=== PATIENT | male | born 1960 | race Caucasian/White ===

== ENCOUNTER 2019-09-20 23:50 | Emergency (ER) | payer OTHER, SELFPAY ==
[2019-09-20 23:52] VITALS: BP 171/88; PULSE 86; RESP 18; TEMP 36.8; O2SAT 98; BMI 32.8
--- NOTE | 2019-09-20 23:58 | W.ED.ABDPA2 ---
HPI - Abdominal Pain General: Chief Complaint: Abdominal Pain Stated Complaint: ABD PAIN Time Seen by Provider: 09/20/19 23:55 History of Present Illness: HPI narrative: Severo is a nice 59-year-old male who comes in complaining of right flank pain. The pain is somewhat similar but a little different that he has had in the past with kidney stones. He has noticed blood in his urine but denies any dysuria or urinary frequency/urgency. Patient has nausea but no vomiting. He denies any fever. He denies any pain in his testicles. He has had no chest pain or shortness of breath. He is tried [id number] Tylenol Motrin which is helped some but his pain is still present. He denies any other complaints or concerns. Pertinent past history: kidney stones Onset (ago): hour(s) (2) Pain Consistency: constant Location: R flank Severity: moderate Quality: sharp Exacerbating factors: nothing Relieving factors: nothing Associated Symptoms: Reports nausea; Denies chills, dysuria, fever(s), hematuria and syncope Treatments prior to arrival: other (None) Review of Systems General: Reports: other (negative unless marked) Const: Denies: fever, chills, body aches, fatigue, malaise or diaphoresis Eyes: Denies: change in vision or blurry vision ENMT: Denies: throat pain, painful swallowing, hoarseness, ear pain, ear discharge, Change in hearing or nasal discharge Card: Denies: chest pain, palpitations, irregular heart rhythm, syncope, pre-syncope, shortness of breath on exertion or shortness of breath when lying down Resp: Denies: shortness of breath, productive cough, non-productive cough, wheezing, coughing up blood or chest congestion GI: Reports: nausea : Denies: flank pain, difficulty urinating, painful urination, urinary frequency, urinary urgency, decreased urine ouput, urinary incontinence or blood in urine Musc: Denies: neck pain, back pain, extremity pain, extremity swelling, joint pain, joint swelling, joint warmth or joint stiffness Skin/Breast: Denies: rash, skin tenderness or yellow skin Neuro: Denies: headache, numbness in extremities, weakness in extremities, changes in sensation, lack of coordination, difficulty walking, dizziness, vertigo or confusion Endo: Denies: excessive thirst, tired all the time, cold intolerance, excessive sweating, flushing or hot flashes Salty/Lymph: Denies: easy bruising, easy bleeding, petechiae or enlarged lymph nodes All/Imm: Denies: hives, throat swelling, tongue swelling, facial swelling or acute wheezing PFSH ED PFSH: Social History Smoking and tobacco status: never smoked Physical Exam Const: COMMON NORMALS: no apparent distress, oriented x3, no limitations, healthy appearing and well nourished EXAM LIMITATIONS: no altered mental status GENERAL APPEARANCE: cooperative, well kempt and well developed ORIENTATION/CONSCIOUSNESS: Yes awake HENMT: COMMON NORMALS: normocephalic, head/scalp atraumatic, hearing grossly normal bilaterally, external ears normal, EAC's normal, external nose normal and moist oral mucous membranes HEAD & SCALP: normal to inspection, normocephalic and atraumatic FACE & SINUS: normal facial exam and face symmetric NOSE: external nose normal and nares normal EXTERNAL EAR: Yes external ears normal EXTERNAL AUDITORY CANAL: EAC's normal MOUTH: oral and palatal mucosa normal and tongue normal Eye: COMMON NORMALS: PERRL, EOMs intact bilaterally, conjunctivae normal and no scleral icterus GENERAL EYE: normal appearance of both eyes and normal light reflex CONJUNCTIVA: Yes conjunctivae normal SCLERA: sclerae normal CORNEA: Yes corneas normal PUPIL: Yes PERRL DIRECT OPHTHALMOSCOPY: Yes normal light reflex Neck/C-Spine: COMMON NORMALS: full ROM, no lymphadenopathy, supple, no meningeal signs and no JVD GENERAL: Yes normal visual inspection and Yes trachea midline CERVICAL SPINE: Yes cervical ROM normal Chest: COMMONS NORMALS: inspection of chest normal and palpation of chest normal Resp: COMMON NORMALS: normal respiratory effort, no retractions, no use of accessory muscles and clear to auscultation bilaterally EFFORT & INSPECTION: Yes able to speak in complete sentences AUSCULTATION: clear to auscultation bilaterally Cardio: COMMON NORMALS: no JVD, regular rate, regular rhythm, S1 normal heart sound, S2 normal heart sound, no gallops, no clicks, no murmurs and no rub JUGULAR VENOUS DISTENTION: no JVD RATE: regular rate RHYTHM: regular rhythm HEART SOUNDS: S1 normal and S2 normal GI: COMMON NORMALS: soft to palpation, non-tender, no hepatosplenomegaly and no masses INSPECTION: Yes normal to inspection PALPATION: Yes soft and Yes no hepatosplenomegaly : COMMON NORMALS: Yes no CVA tenderness BLADDER/KIDNEY EXAM: Yes no CVA tenderness Back/Pelvis: COMMON NORMALS: no CVA tenderness, thoracic and lumbar spine normal to inspection, no thoracic nor lumbar tenderness and thoraco-lumbar ROM normal Extremity: COMMON NORMALS: normal to inspection, full ROM, normal capillary refill, no joint enlargement, no clubbing, cyanosis or edema and no calf tenderness Neuro: COMMON NORMALS: oriented x3, CN's II-XII intact bilaterally, moves all extremities, no focal motor deficits and no sensory deficits noted MENINGEAL SIGNS: Yes no meningeal signs Psych: COMMON NORMALS: mental status grossly normal, thought process normal, cooperative, affect normal, speech normal and activity/motor behavior normal APPEARANCE: Yes well kempt SPEECH: Yes normal speech THOUGHT PROCESS: normal thought process Skin: COMMON NORMALS: no rashes or lesions noted, skin turgor normal, no jaundice, no petechiae and no mottling GENERAL SKIN EXAM: no rashes or lesions noted and turgor normal Course Vital Signs: Vital signs: Vital Signs Temperature 98.3 F 09/20/19 23:52 Pulse Rate 86 09/20/19 23:52 Respiratory Rate 18 09/21/19 00:10 Blood Pressure 171/88 09/20/19 23:52 Pulse Oximetry 98 09/20/19 23:52 MDM - Abdominal Pain MDM Narrative: Medical decision making narrative: Patient states overall he feels much better at this time. CT scan does reveal a kidney stone at the distal right ureter above the UVJ. Patient states that he does not want anything stronger for pain at home. I will give a dose of Toradol and Zofran here before he leaves. He states he can usually tolerate this with Tylenol and Motrin. There is no sign of infection and the patient does not have intractable vomiting. He agrees to return should his symptoms change or worsen. Lab Data: Attestation: I reviewed the patient's lab results. Labs: Lab Results 09/21/19 09/21/19 09/21/19 Range/Units 00:05 00:05 01:10 WBC 9.1 (4.0-10.0) 10^3/ uL RBC 4.88 (4.1-5.3) 10^6/u L Hgb 14.0 (11.7-16.6) g/dL Hct 42.8 (42.0-52.0) % MCV 87.7 (80-94) fL MCH 28.7 (28.0-34.0) pg MCHC 32.7 (30.0-36.0) g/dL RDW 13.3 (12.1-15.1) % Plt Count 347 (130-400) 10^3/c mm MPV 9.9 (7.4-10.4) fL Neut % (Auto) 52.3 % Lymph % (Auto) 38.7 % Foard % (Auto) 7.7 % Eos % (Auto) 0.7 % Baso % (Auto) 0.3 % Neut # (Auto) 4.7 (1.8-7.7) 10^3/u L Lymph # (Auto) 3.5 (0.8-4.8) 10^3/u L Foard # (Auto) 0.7 (0.2-0.9) 10^3/u L Eos # (Auto) 0.1 (0.0-0.8) 10^3/u L Baso # (Auto) 0.0 (0.0-0.1) 10^3/u L Nucleated RBC % (a uto) 0 % Nucleated RBCs # 0.0 /100WBC Sodium 140 (136-145) mmol/L Potassium 3.9 (3.5-5.1) mmol/L Chloride 102 (98-107) mmol/L Carbon Dioxide 24 (22-29) mmol/L Anion Gap 17.9 (5-19) BUN 16 (8-23) mg/dL Creatinine 1.3 H (0.7-1.2) mg/dL GFR Calculation 56.3 L (90-130) mL/min Glucose 140 H (65-115) mg/dL Calculated Osmolal ity 289 (285-295) mOsm/k g Calcium 10.4 (8.5-10.5) mg/dL Total Bilirubin 0.3 (0.15-1.2) mg/dL AST 24 (0-40) U/L ALT 41 (0-41) U/L Alkaline Phosphata se 111 (40-130) IU/L Total Protein 7.6 (6.6-8.7) g/dL Albumin 4.8 (3.5-5.2) g/dL Globulin 2.8 (1.3-4.6) g/dL Lipase 32 (13-60) U/L Urine Color Yellow (Yellow) Urine Appearance Clear (CLEAR) Urine pH 5 (5-7) Ur Specific Gravit y 1.020 (1.005-1.030) Urine Protein Neg (Negative) Urine Glucose (UA) Norm (Normal) Urine Ketones Negative (Negative) Urine Blood 2+ H (Negative) Urine Nitrate Negative (Negative) Urine Bilirubin Neg (NEGATIVE) Urine Urobilinogen Norm (Negative) mg/dL Ur Leukocyte Carola ase Negative (Negative) Urine RBC 0-4 H (0-2) /hpf Urine WBC Rare (0-5) /hpf Ur Squamous Epith Cells Rare (0-5) Urine Bacteria Trace (NONE) Imaging Data ^: CT Abd/Pel: Radiologist's impression: [place] [address] CT Scan Report Signed Patient: SEVERO URBINA Unit #: [id number] : 1960 Age/Sex: 59 / M ADM Date: 09/20/19 Loc: ER Room/Bed: Attending Dr: Ordering Provider/Ordering MD: Petra Bowling DO Date of Service: 09/20/19 Procedure(s): CT kidney stone 44112 Accession Number(s): [id number] Report Number: [id number] PROCEDURE INFORMATION: Exam: CT Abdomen And Pelvis Without Contrast Exam date and time: 09/20/2019 11:58 PM Age: 59 years old Clinical indication: Abdominal pain; Flank; Right; Prior surgery; Surgery type: Hernia repair; Additional info: Flank/abdominal pain TECHNIQUE: Imaging protocol: Computed tomography of the abdomen and pelvis without contrast. Radiation optimization: All CT scans at this facility use at least one of these dose optimization techniques: automated exposure control; mA and/or kV adjustment per patient size (includes targeted exams where dose is matched to clinical indication); or iterative reconstruction. COMPARISON: No relevant prior studies available. RADIATION DOSE METRICS: Total DLP: 2107.16 mGy-cm FINDINGS: Limitations: The absence of intravenous contrast lessens the sensitivity of this study for solid organ abnormalities. Liver: There is moderate enlargement of the liver. The liver measures 22 cm in height. There is a diffuse decrease in hepatic parenchymal density, consistent with mild fatty infiltration. There is no focal abnormality within the liver. Gallbladder and bile ducts: The gallbladder is normal. Pancreas: The pancreas is normal. Spleen: The spleen is normal. Adrenals: The adrenal glands are normal. Kidneys and ureters: There is maximum size 4.6 mm sized stone in the distal right ureter just above the right ureterovesical junction. This measures approximately 1300 Hounsfield units in density and may be visible on the human geography instructor radiograph. There is mild right hydroureter. There are multiple bilateral renal collecting system calcifications. There is no evidence of hydronephrosis. There is no stone in the left ureter. Stomach and bowel: There is no evidence of colitis/diverticulitis. Appendix: A normal appendix is identified. Intraperitoneal space: Unremarkable. No free air. No significant fluid collection. Vasculature: The aorta demonstrates mild atherosclerotic calcification. Lymph nodes: Unremarkable. No enlarged lymph nodes. Bladder: Unremarkable as visualized. Reproductive: Unremarkable as visualized. Bones/joints: Unremarkable. No acute fracture. Soft tissues: Unremarkable. CT/CT kidney stone [id number] IMPRESSION: 1. Bilateral nephrolithiasis 2. Small stone in the distal right ureter at the right ureterovesical junction. 3. Hepatomegaly and mild fatty liver Radiation Dose CTDIVOL = (mGy): DLP = 2107.16 (mGy-cm) Dictated By: Eric Blue Signed By: Eric Blue Signed Date/Time: 09/21/1944 DD/ Discharge Plan Discharge Patient Disposition: Home, Self-Care Clinical Impression: Calculus, ureteral Condition: Stable Prescriptions: New Zofran 4 mg tablet 4 mg PO Q6H PRN (Reason: nausea and vomiting) Qty: 20 RF: 0 Cipro 500 mg tablet 500 mg PO BID Qty: 20 RF: 0 No Action amlodipine 10 mg Tablet 10 mg PO DAILY RF: 0 losartan 100 mg Tablet 100 mg PO DAILY RF: 0 Discharge Orders: Discharge Order (Routine); Ordered 09/21/19 Ordered By: Petra Bowling Referrals: Altaf Trivedi MD [Physician] - 1-3 days Discharge Diet: Advance as tolerated Discharge Activity: Resume usual activity Patient Instructions: Kidney Stones (ED), Renal Colic (ED), Flank Pain (ED) Activity Restrictions/Additional Instructions: Please return to the ER immediately for any of the signs or symptoms listed on your discharge instruction sheets, worsening/changing of your symptoms, you are not getting better as quickly as expected, or for ANY other cause or concerns. Be certain to strain your urine. Be certain to follow-up with Dr. Trivedi for recheck. Return to the ER for worsening of your symptoms, fever, intractable vomiting, or for any other cause for concern. Coding Level of Care Code ED Diet Therapist for Kenneth Fwd Exam Comprehensive
[2019-09-21] VITALS (26 sets, daily range): BP systolic 171; BP diastolic 88; RESP 18; O2SAT 95–97
[2019-09-21] MEDS: sodium chloride 0.9% 1,000 ML 999 ML IV (00:05)
[2019-09-21] MEDS: ondansetron 2 mg/ML SDV 2 mL 4 MG IVP (00:06)
[2019-09-21] MEDS: HYDROmorphone 1 mg/mL INJ 1 mL IVP (00:10)
[2019-09-21 00:13] LABS: Basophils % 0.3 %; Eosinophils # 0.1 10^3/uL (0.0-0.8); Eosinophils % 0.7 %; Hematocrit 42.8 % (42.0-52.0); Lymphocytes # 3.5 10^3/uL (0.8-4.8); Lymphocytes % 38.7 %; Mean Corpuscular HGB Conc 32.7 g/dL (30.0-36.0); Mean Corpuscular Hemoglobin 28.7 pg (28.0-34.0); Mean Corpuscular Volume 87.7 fL (80-94); Mean Platelet Volume 9.9 fL (7.4-10.4); Monocytes # 0.7 10^3/uL (0.2-0.9); Monocytes % 7.7 %; Neutrophils # 4.7 10^3/uL (1.8-7.7); Neutrophils % 52.3 %; Nucleated Red Blood Cells % 0 %; Platelet Count 347 10^3/cmm (130-400); Red Blood Count 4.88 10^6/uL (4.1-5.3); Red Cell Distribution Width 13.3 % (12.1-15.1); White Blood Count 9.1 10^3/uL (4.0-10.0)
[2019-09-21 00:34] LABS: Alanine Aminotransferase 41 U/L (0-41); Albumin Level 4.8 g/dL (3.5-5.2); Alkaline Phosphatase 111 IU/L (40-130); Anion Gap 17.9 (5-19); Aspartate Amino Transferase 24 U/L (0-40); Blood Urea Nitrogen 16 mg/dL (8-23); Calcium 10.4 mg/dL (8.5-10.5); Carbon Dioxide 24 mmol/L (22-29); Chloride 102 mmol/L (98-107); Globulin 2.8 g/dL (1.3-4.6); Glomerular Filtration Rate 56.3 mL/min (90-130); Glucose 140 mg/dL (65-115); Lipase 32 U/L (13-60); Osmolality Calculated 289 mOsm/kg (285-295); Potassium 3.9 mmol/L (3.5-5.1); Sodium 140 mmol/L (136-145); Total Bilirubin 0.3 mg/dL (0.15-1.2); Total Protein 7.6 g/dL (6.6-8.7)
[2019-09-21 01:53] LABS: Bacteria Urine TRACE; Bilirubin Urine Neg (NEGATIVE); Blood Urine 2+ (Negative); Glucose Urine UA Norm (Normal); Ketones Urine Negative (Negative); Leukocyte Esterase Urine Negative (Negative); Nitrate Urine Negative (Negative); Protein Urine Neg (Negative); RBC Urine 0-4 /hpf (0-2); Squamous Epithelial Cell Urine RARE (0-5); Urine Appearance Clear (CLEAR); Urine Color Yellow (Yellow); Urobilinogen Urine Norm (Negative); WBC Urine RARE /hpf (0-5); pH Urine 5 (5-7)
--- NOTE | 2019-09-21 14:20 | DCPLANNER ---
accreditation manager had message to schedule a follow up appointment for patient with Dr. Trivedi. accreditation manager called the office of Dr. Trivedi, spoke with Sobia, gave clinic patients information. accreditation manager was told that patients information would be printed and given to Caro for review. Clinic will call patient with appointment information. accreditation manager will call for appointment information.
--- NOTE | 2019-09-23 12:11 | DCPLANNER ---
Sobia from Dr. Black office called case finishing machine adjuster and informed case finishing machine adjuster that clinic does not accept patients insurance, and clinic has called patient and informed patient of this. Patient stated that he would follow up with primary care.
== END 2019-09-21 02:44 | disposition home or self-care (01) ==
PROVIDERS: Emergency Provider Emergency Medicine
DX: N20.1 Calculus of ureter (principal)
CPT/HCPCS: 12345; 74176; 80053; 81001; 83690; 85025; 96361; 96374; 96375; 96376; 99283; 99284; J1170; J2405; J7030

== ENCOUNTER 2020-03-24 11:06 | Emergency (ER) | payer OTHER, SELFPAY ==
[2020-03-24 11:22] VITALS: BP 158/88; PULSE 83; RESP 14; TEMP 36.8; O2SAT 97; BMI 32.8
--- NOTE | 2020-03-24 12:01 | XRR_ITS ---
PROCEDURE INFORMATION: Exam: XR Chest, 1 View Exam date and time: 03/24/2020 12:28 PM Age: 59 years old Clinical indication: Dyspnea; Additional info: Dizziness TECHNIQUE: Imaging protocol: XR of the chest Views: 1 view. COMPARISON: No relevant prior studies available. FINDINGS: Lungs: Unremarkable. No consolidation. Pleural space: Unremarkable. No pleural effusion. No pneumothorax. Heart/Mediastinum: Unremarkable. No cardiomegaly. Bones/joints: Mild dextroscoliosis. XR/XR chest 1V portable [id number] IMPRESSION: No acute findings.
--- NOTE | 2020-03-24 12:01 | CTR_ITS ---
PROCEDURE INFORMATION: Exam: CT Head Without Contrast Exam date and time: 03/24/2020 12:28 PM Age: 59 years old Clinical indication: Dizziness TECHNIQUE: Imaging protocol: Computed tomography of the head without contrast. Radiation optimization: All CT scans at this facility use at least one of these dose optimization techniques: automated exposure control; mA and/or kV adjustment per patient size (includes targeted exams where dose is matched to clinical indication); or iterative reconstruction. COMPARISON: No relevant prior studies available. RADIATION DOSE METRICS: Total DLP (mGy-cm): 862.41 FINDINGS: Brain: Mild cerebral atrophy and ischemic leukoencephalopathy. Cerebral ventricles: No ventriculomegaly. Bones/joints: Unremarkable. No acute fracture. Paranasal sinuses: Visualized sinuses are unremarkable. No fluid levels. Mastoid air cells: Visualized mastoid air cells are well aerated. Vasculature: Moderate calcified intracranial atherosclerotic vessel disease. Soft tissues: Unremarkable. CT/CT head wo con* [id number] IMPRESSION: No acute intracranial findings. Radiation Dose CTDIVOL = (mGy): DLP = 862.41 (mGy-cm)
--- NOTE | 2020-03-24 12:05 | ECG_ITS ---
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
--- NOTE | 2020-03-24 12:05 | W.ED.DIZZY ---
HPI - Dizziness General: Chief Complaint: Dizziness Stated Complaint: Dizzy,trouble walking,high bp,sob,chest pain,heada Time Seen by Provider: 03/24/20 11:48 Source: patient Mode of arrival: ambulatory Limitations: no limitations History of Present Illness: HPI Narrative: Patient is a 59-year-old male with a history of hypertension who presents to the emergency department with dizziness and vertigo. He was having breakfast when he had a sudden onset of severe dizziness and presyncope and thought he was going to have a syncopal episode. Worse on turning his head. He had a little bit of shortness of breath but no chest pain at the time. Still no chest pain now. Symptoms a little better but still present. 4 days ago his boss tested positive for COVID-19, and both have been sick all week. The patient got a test 2 days ago but tested negative. MD elicited complaint: dizziness and near syncope Timing: sudden onset Severity: severe Description: room spinning History of similar symptoms: No Exacerbating factors: movement/ambulation Associated symptoms: Denies abnormal vaginal bleeding, change in hearing, chest pain, chills, cough, diaphoresis, ear discharge, ear pressure, fevers/chills, headache(s), malaise, nausea, nasal congestion, palpitations, rash, short of breath, syncope, tinnitus, vomiting or weakness Review of Systems General: Reports: 10 or more systems reviewed and unremarkable except in HPI and below Const: Denies: chills, malaise or diaphoresis Eyes: Denies: change in vision or blurry vision ENMT: Denies: ear discharge, change in hearing, tinnitus or nasal congestion Card: Denies: chest pain, palpitations or syncope Resp: Denies: dyspnea, productive cough or non-productive cough GI: Denies: nausea or vomiting : Denies: flank pain, dysuria, urinary frequency, urinary urgency or urinary hesitancy Musc: Denies: neck pain, back pain or extremity swelling Skin/Breast: Denies: rash, pruritus or erythema Neuro: Denies: headache(s) Endo: Denies: polyuria, polydipsia or tired all the time PFSH ED PFSH: Social History Smoking and tobacco status: never smoked Physical Exam Const: COMMON NORMALS: no acute distress, average body habitus, patient oriented x3, no limitations, healthy appearing, alert and well nourished HENMT: COMMON NORMALS: normocephalic, atraumatic and moist oral mucous membranes HEAD & SCALP: normocephalic and atraumatic Eye: COMMON NORMALS: Equal, round and reactive pupils present, EOMs intact bilaterally, conjunctivae normal and no scleral icterus CONJUNCTIVA: Yes conjunctivae normal PUPIL: Yes Equal, round and reactive pupils present Neck/C-Spine: COMMON NORMALS: full ROM, supple, no meningeal signs, no JVD and No carotid bruits Chest: COMMONS NORMALS: normal inspection of the chest and normal palpation of entire chest wall Resp: COMMON NORMALS: normal respiratory effort, No retractions, No use of accessory muscles, clear to auscultation bilaterally and percussion normal AUSCULTATION: clear to auscultation bilaterally PERCUSSION: percussion normal Cardio: COMMON NORMALS: no JVD, regular rate, regular rhythm, S1 normal heart sound present, S2 normal heart sound present, No gallops present (Cardio), No clicks present (Cardio), No murmurs present (Cardio), No rub (Cardio) and Peripheral pulses 2+ throughout RATE: regular rate RHYTHM: regular rhythm HEART SOUNDS: S1 normal heart sound present and S2 normal heart sound present PERIPHERAL PULSES: Peripheral pulses 2+ throughout GI: COMMON NORMALS: Normal to inspection, nondistended, normoactive bowel sounds present, Soft to palpation, non-tender, No hepatosplenomegaly present, no masses and no bruits PALPATION: Yes Soft to palpation and Yes No hepatosplenomegaly present Extremity: COMMON NORMALS: normal to inspection, full ROM, capillary refill normal, no calf tenderness and no pedal edema Neuro: COMMON NORMALS: patient oriented x3 SENSORIUM/ORIENTATION: Yes alert MENINGEAL SIGNS: Yes no meningeal signs Skin: COMMON NORMALS: no rashes or lesions noted, no wounds, turgor normal, no jaundice, no petechiae and no mottling GENERAL SKIN EXAM: no rashes or lesions noted and turgor normal Course Reevaluation(s): Reevaluation #1: Dizziness much improved after meclizine. Time: 13:36 Reevaluation #2: Discussed his labs and imaging findings with him. Negative for acute findings. He continues to feel much improved and no longer has symptoms. He will be discharged home with a prescription for meclizine. He voiced understanding and all questions answered. Time: 15:28 Vital Signs: Vital signs: Vital Signs Temperature 98.2 F 03/24/20 11:22 Pulse Rate 75 03/24/20 15:57 Respiratory Rate 22 H 03/24/20 15:57 Blood Pressure 123/81 03/24/20 15:57 Pulse Oximetry 96 03/24/20 15:57 MDM - Dizziness MDM Narrative: Medical decision making narrative: 59-year-old male with sudden onset of vertigo today. Vertigo was relieved with meclizine, and evaluation in the emergency department was unremarkable for acute findings. Head CT negative, other labs and imaging also negative for acute findings. He is discharged home with a prescription for meclizine and a printout of the Ansley maneuver exercises to perform at home Medical Records: Attestation: I reviewed the patient's medical records. Lab Data: Attestation: I reviewed the patient's lab results. Labs: Lab Results 03/24/20 03/24/20 03/24/20 Range/Units 12:19 12:19 12:24 WBC (4.0-10.0) 10^3/ uL RBC (4.1-5.3) 10^6/u L Hgb (11.7-16.6) g/dL Hct (42.0-52.0) % MCV (80-94) fL MCH (28.0-34.0) pg MCHC (30.0-36.0) g/dL RDW (12.1-15.1) % Plt Count (130-400) 10^3/c mm MPV (7.4-10.4) fL Neut % (Auto) % Lymph % (Auto) % [place] % (Auto) % Eos % (Auto) % Baso % (Auto) % Neut # (Auto) (1.8-7.7) 10^3/u L Lymph # (Auto) (0.8-4.8) 10^3/u L [place] # (Auto) (0.2-0.9) 10^3/u L Eos # (Auto) (0.0-0.8) 10^3/u L Baso # (Auto) (0.0-0.1) 10^3/u L Nucleated RBC % (a uto) % Nucleated RBCs # /100WBC D-Dimer 0.29 (0-0.59) ug/mIFE U Sodium (136-145) mmol/L Potassium (3.5-5.1) mmol/L Chloride (98-107) mmol/L Carbon Dioxide (22-29) mmol/L Anion Gap (5-19) BUN (8-23) mg/dL Creatinine (0.7-1.2) mg/dL GFR Calculation (90-130) mL/min Glucose (65-115) mg/dL Calculated Osmolal ity (285-295) mOsm/k g Lactic Acid (0.5-2.2) mmol/L Calcium (8.5-10.5) mg/dL Total Bilirubin (0.15-1.2) mg/dL AST (0-40) U/L ALT (0-41) U/L Alkaline Phosphata se (40-130) IU/L Troponin T Baselin e (0-15) ng/L Troponin T 120 Min kleber (0-15) ng/L Delta Troponin T (0-10) ABS# C-Reactive Protein (0.0-4.9) mg/L Total Protein (6.6-8.7) g/dL Albumin (3.5-5.2) g/dL Globulin (1.3-4.6) g/dL Procalcitonin (0-0.5) ng/mL Influenza Type A A g Negative (Negative) Influenza Type B A g Negative (Negative) SARS-CoV-2 Ag (Rap id) Negative (Negative) 03/24/20 03/24/20 03/24/20 Range/Units 12:24 12:24 12:24 WBC 6.8 (4.0-10.0) 10^3/ uL RBC 5.03 (4.1-5.3) 10^6/u L Hgb 14.2 (11.7-16.6) g/dL Hct 43.4 (42.0-52.0) % MCV 86.3 (80-94) fL MCH 28.2 (28.0-34.0) pg MCHC 32.7 (30.0-36.0) g/dL RDW 14.4 (12.1-15.1) % Plt Count 289 (130-400) 10^3/c mm MPV 9.6 (7.4-10.4) fL Neut % (Auto) 53.1 % Lymph % (Auto) 38.9 % [place] % (Auto) 6.6 % Eos % (Auto) 0.7 % Baso % (Auto) 0.3 % Neut # (Auto) 3.62 (1.8-7.7) 10^3/u L Lymph # (Auto) 2.7 (0.8-4.8) 10^3/u L [place] # (Auto) 0.5 (0.2-0.9) 10^3/u L Eos # (Auto) 0.1 (0.0-0.8) 10^3/u L Baso # (Auto) 0.0 (0.0-0.1) 10^3/u L Nucleated RBC % (a uto) 0 % Nucleated RBCs # 0.0 /100WBC D-Dimer (0-0.59) ug/mIFE U Sodium 139 (136-145) mmol/L Potassium 4.0 (3.5-5.1) mmol/L Chloride 103 (98-107) mmol/L Carbon Dioxide 21 L (22-29) mmol/L Anion Gap 19.0 (5-19) BUN 19 (8-23) mg/dL Creatinine 0.8 (0.7-1.2) mg/dL GFR Calculation 98.6 (90-130) mL/min Glucose 136 H (65-115) mg/dL Calculated Osmolal ity 292 (285-295) mOsm/k g Lactic Acid 1.4 (0.5-2.2) mmol/L Calcium 9.4 (8.5-10.5) mg/dL Total Bilirubin 0.3 (0.15-1.2) mg/dL AST 23 (0-40) U/L ALT 39 (0-41) U/L Alkaline Phosphata se 112 (40-130) IU/L Troponin T Baselin e (0-15) ng/L Troponin T 120 Min kleber (0-15) ng/L Delta Troponin T (0-10) ABS# C-Reactive Protein 7.0 H (0.0-4.9) mg/L Total Protein 7.3 (6.6-8.7) g/dL Albumin 4.5 (3.5-5.2) g/dL Globulin 2.8 (1.3-4.6) g/dL Procalcitonin 0.06 (0-0.5) ng/mL Influenza Type A A g (Negative) Influenza Type B A g (Negative) SARS-CoV-2 Ag (Rap id) (Negative) 03/24/20 03/24/20 Range/Units 12:24 14:45 WBC (4.0-10.0) 10^3/ uL RBC (4.1-5.3) 10^6/u L Hgb (11.7-16.6) g/dL Hct (42.0-52.0) % MCV (80-94) fL MCH (28.0-34.0) pg MCHC (30.0-36.0) g/dL RDW (12.1-15.1) % Plt Count (130-400) 10^3/c mm MPV (7.4-10.4) fL Neut % (Auto) % Lymph % (Auto) % [place] % (Auto) % Eos % (Auto) % Baso % (Auto) % Neut # (Auto) (1.8-7.7) 10^3/u L Lymph # (Auto) (0.8-4.8) 10^3/u L [place] # (Auto) (0.2-0.9) 10^3/u L Eos # (Auto) (0.0-0.8) 10^3/u L Baso # (Auto) (0.0-0.1) 10^3/u L Nucleated RBC % (a uto) % Nucleated RBCs # /100WBC D-Dimer (0-0.59) ug/mIFE U Sodium (136-145) mmol/L Potassium (3.5-5.1) mmol/L Chloride (98-107) mmol/L Carbon Dioxide (22-29) mmol/L Anion Gap (5-19) BUN (8-23) mg/dL Creatinine (0.7-1.2) mg/dL GFR Calculation (90-130) mL/min Glucose (65-115) mg/dL Calculated Osmolal ity (285-295) mOsm/k g Lactic Acid (0.5-2.2) mmol/L Calcium (8.5-10.5) mg/dL Total Bilirubin (0.15-1.2) mg/dL AST (0-40) U/L ALT (0-41) U/L Alkaline Phosphata se (40-130) IU/L Troponin T Baselin e 6 (0-15) ng/L Troponin T 120 Min kleber 6.00 (0-15) ng/L Delta Troponin T 0 (0-10) ABS# C-Reactive Protein (0.0-4.9) mg/L Total Protein (6.6-8.7) g/dL Albumin (3.5-5.2) g/dL Globulin (1.3-4.6) g/dL Procalcitonin (0-0.5) ng/mL Influenza Type A A g (Negative) Influenza Type B A g (Negative) SARS-CoV-2 Ag (Rap id) (Negative) Imaging Data^: CXR: Attestation: I personally reviewed and interpreted this imaging study as follows: Radiologist's impression: [place] [address] XRay Report Signed Patient: Ruben Zabala #: [id number] : 1960Acct#:[id number] Age/Sex: 59 / MADM Date: 03/24/20 Loc: [facility] [place]/Bed: Attending Dr: Ordering Provider/Ordering MD: Shelton Blanco MD, [facility] Date of Service: 03/24/20 Procedure(s): XR chest 1V portable [id number] Accession Number(s): [id number] Report Number: [id number] PROCEDURE INFORMATION: Exam: XR Chest, 1 View Exam date and time: 03/24/2020 12:28 PM Age: 59 years old Clinical indication: Dyspnea; Additional info: Dizziness TECHNIQUE: Imaging protocol: XR of the chest Views: 1 view. COMPARISON: No relevant prior studies available. FINDINGS: Lungs: Unremarkable. No consolidation. Pleural space: Unremarkable. No pleural effusion. No pneumothorax. Heart/Mediastinum: Unremarkable. No cardiomegaly. Bones/joints: Mild dextroscoliosis. XR/XR chest 1V portable [id number] IMPRESSION: No acute findings. Dictated By:Kuldip Albright MD Signed By:Kuldip Albright MDSigned Date/Time:03/24/20 1306 DD/ 04 CT Head: Attestation: I personally reviewed and interpreted this imaging study as follows: Radiologist's impression: [address] [address] [address] Scan Report Signed Patient: Ruben Zabala #: [id number] : 1960Acct#:[id number] Age/Sex: 59 / MADM Date: 03/24/20 Loc: [facility]/Bed: Attending Dr: Ordering Provider/Ordering MD: Shelton Blanco MD, [facility] Date of Service: 03/24/20 Procedure(s): CT head wo con* [id number] Accession Number(s): [id number] Report Number: [id number] PROCEDURE INFORMATION: Exam: CT Head Without Contrast Exam date and time: 03/24/2020 12:28 PM Age: 59 years old Clinical indication: Dizziness TECHNIQUE: Imaging protocol: Computed tomography of the head without contrast. Radiation optimization: All CT scans at this facility use at least one of these dose optimization techniques: automated exposure control; mA and/or kV adjustment per patient size (includes targeted exams where dose is matched to clinical indication); or iterative reconstruction. COMPARISON: No relevant prior studies available. RADIATION DOSE METRICS: Total DLP (mGy-cm): 862.41 FINDINGS: Brain: Mild cerebral atrophy and ischemic leukoencephalopathy. Cerebral ventricles: No ventriculomegaly. Bones/joints: Unremarkable. No acute fracture. Paranasal sinuses: Visualized sinuses are unremarkable. No fluid levels. Mastoid air cells: Visualized mastoid air cells are well aerated. Vasculature: Moderate calcified intracranial atherosclerotic vessel disease. Soft tissues: Unremarkable. CT/CT head wo con* [id number] IMPRESSION: No acute intracranial findings. Radiation Dose CTDIVOL = (mGy): DLP = 862.41 (mGy-cm) Dictated By:Kuldip Albright MD Signed By:Kuldip Albright MDSigned Date/Time:03/24/20 1304 DD/ 1304 EKG Data^: EKG 1: Attestation: I personally reviewed and interpreted this EKG as follows: EKG interpretation date: 03/24/20 EKG interpretation time: 11:33 Prior EKG tracings: not available for review Interpretation: Normal sinus rhythm. Heart rate [address] changes. Normal axis. EKG 2: Attestation: I personally reviewed and interpreted this EKG as follows: EKG interpretation date: 03/24/20 EKG interpretation time: 15:28 Prior EKG tracings: available for review Interpretation: Normal sinus rhythm. Heart rate [address] changes. Normal axis. Discharge Plan Discharge Patient Disposition: Home Clinical Impression: Benign paroxysmal positional vertigo Qualifiers: Laterality: unspecified laterality Qualified Code(s): H81.10 - Benign paroxysmal vertigo, unspecified ear Condition: Stable Prescriptions: New meclizine 25 mg tablet 25 mg PO TID PRN (Reason: dizziness) Qty: 30 RF: 0 Continued amlodipine 10 mg Tablet 10 mg PO DAILY RF: 0 losartan 100 mg Tablet 100 mg PO DAILY RF: 0 ondansetron HCl [Zofran] 4 mg tablet 4 mg PO Q6H PRN (Reason: nausea and vomiting) Qty: 20 RF: 0 B Complex Stress Tab 1 tab PO PRN RF: 0 rabeprazole 20 mg tablet,delayed release (DR/EC) 20 mg PO DAILY RF: 0 naproxen 375 mg Tablet 375 - 750 mg PO PRN RF: 0 aspirin 325 mg Tablet 975 mg PO TID RF: 0 allopurinol 100 mg tablet 100 mg PO DAILY RF: 0 Tylenol Extra Strength 500 mg Tablet 1,000 mg PO PRN RF: 0 ProAir HFA 90 mcg/actuation Hfa Aerosol Inhaler 2 puff INHALATION Q4H PRN (Reason: Shortness Of Breath) RF: 0 Excedrin Migraine 250-250-65 mg Tablet 3 tab PO PRN RF: 0 Tricor 48 mg tablet 48 mg PO DAILY RF: 0 Discharge Orders: Discharge Order (Routine); Ordered 03/24/20 Ordered By: Shelton Blanco Discharge Diet: Usual diet Discharge Activity: Increase activity as tolerated Patient Instructions: Benign Paroxysmal Positional Vertigo (ED) Activity Restrictions/Additional Instructions: Return for any new or worsening symptoms. Follow up with your primary care provider within 3 days. Take the medications as prescribed. Perform the exercises given to you to help with your symptoms. Discharge Date/Time: 03/24/20 16:02 Coding Level of Care Code ED Exercise Scientist for Kenneth Fwd Exam Comprehensive
[2020-03-24] MEDS: meclizine 25 mg tablet PO (12:21)
[2020-03-24 12:37] LABS: Basophils % 0.3 %; Eosinophils # 0.1 10^3/uL (0.0-0.8); Eosinophils % 0.7 %; Hematocrit 43.4 % (42.0-52.0); Hemoglobin 14.2 g/dL (11.7-16.6); Lymphocytes # 2.7 10^3/uL (0.8-4.8); Lymphocytes % 38.9 %; Mean Corpuscular HGB Conc 32.7 g/dL (30.0-36.0); Mean Corpuscular Hemoglobin 28.2 pg (28.0-34.0); Mean Corpuscular Volume 86.3 fL (80-94); Mean Platelet Volume 9.6 fL (7.4-10.4); Monocytes # 0.5 10^3/uL (0.2-0.9); Monocytes % 6.6 %; Neutrophils # 3.62 10^3/uL (1.8-7.7); Neutrophils % 53.1 %; Nucleated Red Blood Cells % 0 %; Platelet Count 289 10^3/cmm (130-400); Red Blood Count 5.03 10^6/uL (4.1-5.3); Red Cell Distribution Width 14.4 % (12.1-15.1); White Blood Count 6.8 10^3/uL (4.0-10.0)
[2020-03-24 12:55] LABS: D Dimer 0.29 ug/mIFEU (0-0.59)
[2020-03-24 12:58] LABS: Lactic Sepsis W/Reflex 1.4 mmol/L (0.5-2.2)
[2020-03-24 12:58] LABS: Influenza A by IFA Negative (Negative); Influenza B by IFA Negative (Negative); SARS Covid-2 Antigen Negative (Negative)
[2020-03-24 12:59] LABS: Troponin(5th) Baseline 6 ng/L (0-15)
[2020-03-24 13:05] LABS: Procalcitonin 0.06 ng/mL (0-0.5)
[2020-03-24 13:16] LABS: Alanine Aminotransferase 39 U/L (0-41); Albumin Level 4.5 g/dL (3.5-5.2); Alkaline Phosphatase 112 IU/L (40-130); Aspartate Amino Transferase 23 U/L (0-40); Blood Urea Nitrogen 19 mg/dL (8-23); Calcium 9.4 mg/dL (8.5-10.5); Carbon Dioxide 21 mmol/L (22-29); Chloride 103 mmol/L (98-107); Globulin 2.8 g/dL (1.3-4.6); Glomerular Filtration Rate 98.6 mL/min (90-130); Glucose 136 mg/dL (65-115); Osmolality Calculated 292 mOsm/kg (285-295); Sodium 139 mmol/L (136-145); Total Bilirubin 0.3 mg/dL (0.15-1.2); Total Protein 7.3 g/dL (6.6-8.7)
--- NOTE | 2020-03-24 14:05 | ECG_ITS ---
[facility] Test Date: 2020-03-24 Pat Name: Severo Zabala Department: Room: Gender: Male Director Of Pulmonary Unit: : 1960 Requested By: Shelton Blanco I Order Number: [id number] Reading MD: CARYL SCHERER Measurements Intervals [place] Rate: 72 P: 29 NM: 148 QRS: 9 QRSD: 88 T: 19 QT: 378 QTc: 414 Interpretive Statements SINUS RHYTHM Compared to ECG 03/24/2020 11:33:49 No significant changes Electronically Signed On 03-24-2020 18:31:44 CDT by CARYL SCHERER [id number]
[2020-03-24 15:07] LABS: Troponin 5 2HR Delta 0 ABS# (0-10)
[2020-03-24 15:57] VITALS: BP 123/81; PULSE 75; RESP 22; O2SAT 96
[2020-03-25 16:43] LABS: Quest SARS-CoV-2 RNA NOT DETECTED (NOT DETECTED)
--- NOTE | 2020-03-26 08:39 | PC.NURSE ---
Pt called and notified of negative COVID result.
== END 2020-03-24 16:02 | disposition home or self-care (01) ==
PROVIDERS: Emergency Provider Family Medicine
DX: H81.10 Benign paroxysmal vertigo, unspecified ear (principal); Z79.82 Long term (current) use of aspirin
CPT/HCPCS: 12345; 70450; 71045; 80053; 83605; 84145; 84484; 85025; 85378; 86140; 87426; 87635; 87804; 93005; 99283; J8597

== ENCOUNTER 2020-09-04 23:33 | Emergency (ER) | payer OTHER, SELFPAY ==
[2020-09-04 23:36] VITALS: BP 153/90; PULSE 85; RESP 17; TEMP 36.5; O2SAT 97; BMI 34.8
--- NOTE | 2020-09-04 23:53 | W.ED.ABDPA2 ---
HPI - Abdominal Pain General: Chief Complaint: Abdominal Pain Stated Complaint: SEVERE ABD PAIN RADIATES FROM LLS INTO GROIN Time Seen by Provider: 09/04/20 23:39 Source: patient Mode of arrival: ambulatory Limitations: no limitations History of Present Illness: HPI narrative: 59-year-old male states he started having some flank pain on Thursday. He states that yesterday got much worse and is now radiating to his left testicle. His pain is severe in nature and rates it a 9 out of 10. He has had nausea no vomiting. He has had multiple kidney stone in the past and this feels similar. Denies any worsening proving factors. He states he does have some pain with urination. Associated Symptoms: Reports nausea; Denies chills and fever(s) Review of Systems Const: Denies: fever(s), chills, body aches or change in appetite Eyes: Denies: blurry vision or eye discomfort ENMT: Denies: throat pain or dental pain Card: Denies: chest pain Resp: Denies: dyspnea GI: Reports: abdominal pain and nausea : Reports: flank pain Musc: Denies: neck pain or back pain Skin/Breast: Denies: rash Neuro: Denies: headache(s) Psych: Denies: depression Salty/Lymph: Denies: easy bruising All/Imm: Denies: urticaria PFSH ED PFSH: Social History Smoking and tobacco status: never smoked Physical Exam Const: COMMON NORMALS: no acute distress, patient oriented x3 and healthy appearing HENMT: COMMON NORMALS: normocephalic and atraumatic HEAD & SCALP: normocephalic and atraumatic Eye: COMMON NORMALS: Equal, round and reactive pupils present and EOMs intact bilaterally PUPIL: Yes Equal, round and reactive pupils present Neck/C-Spine: COMMON NORMALS: full ROM and supple Chest: COMMONS NORMALS: normal inspection of the chest and normal palpation of entire chest wall Resp: COMMON NORMALS: normal respiratory effort, No retractions, No use of accessory muscles and clear to auscultation bilaterally AUSCULTATION: clear to auscultation bilaterally Cardio: COMMON NORMALS: regular rate, regular rhythm and No murmurs present (Cardio) RATE: regular rate RHYTHM: regular rhythm GI: COMMON NORMALS: Normal to inspection, nondistended, normoactive bowel sounds present, Soft to palpation, non-tender and no masses PALPATION: Yes Soft to palpation Extremity: COMMON NORMALS: normal to inspection and full ROM Neuro: COMMON NORMALS: patient oriented x3, moves all extremities and no focal motor deficits Psych: COMMON NORMALS: mental status grossly normal, Normal thought process present and cooperative THOUGHT PROCESS: Normal thought process present Skin: COMMON NORMALS: no rashes or lesions noted and no wounds GENERAL SKIN EXAM: no rashes or lesions noted Course Vital Signs: Vital signs: Vital Signs Temperature 97.7 F 09/04/20 23:36 Pulse Rate 85 09/04/20 23:36 Respiratory Rate 20 H 09/05/20 00:07 Blood Pressure 153/90 09/04/20 23:36 Pulse Oximetry 97 09/04/20 23:36 MDM - Abdominal Pain MDM Narrative: Medical decision making narrative: Severo presents here with flank pain and has a kidney stone. Stone is 5 mm likely should pass. His pain is resolved here. We will send him home with urine strainer he is to follow-up with Dr. Trivedi. He is return to ER if worsening. He understands agrees to plan. Lab Data: Labs: Lab Results 09/04/20 09/04/20 09/05/20 Range/Units 23:55 23:55 01:25 WBC 11.0 H (4.0-10.0) 10^3/ uL RBC 4.73 (4.1-5.3) 10^6/u L Hgb 13.4 (11.7-16.6) g/dL Hct 40.8 L (42.0-52.0) % MCV 86.3 (80-94) fL MCH 28.3 (28.0-34.0) pg MCHC 32.8 (30.0-36.0) g/dL RDW 13.7 (12.1-15.1) % Plt Count 290 (130-400) 10^3/c mm MPV 9.3 (7.4-10.4) fL Neut % (Auto) 62.0 % Lymph % (Auto) 29.5 % [place] % (Auto) 7.8 % Eos % (Auto) 0.3 % Baso % (Auto) 0.2 % Neut # (Auto) 6.80 (1.8-7.7) 10^3/u L Lymph # (Auto) 3.2 (0.8-4.8) 10^3/u L [place] # (Auto) 0.9 (0.2-0.9) 10^3/u L Eos # (Auto) 0.0 (0.0-0.8) 10^3/u L Baso # (Auto) 0.0 (0.0-0.1) 10^3/u L Nucleated RBC % (a uto) 0 % Nucleated RBCs # 0.0 /100WBC Sodium 134 L (136-145) mmol/L Potassium 3.7 (3.5-5.1) mmol/L Chloride 99 (98-107) mmol/L Carbon Dioxide 24 (22-29) mmol/L Anion Gap 14.7 (5-19) BUN 17 (8-23) mg/dL Creatinine 0.8 (0.7-1.2) mg/dL GFR Calculation 98.6 (90-130) mL/min Glucose 154 H (65-115) mg/dL Calculated Osmolal ity 283 L (285-295) mOsm/k g Calcium 9.0 (8.5-10.5) mg/dL Total Bilirubin 0.3 (0.15-1.2) mg/dL AST 13 (0-40) U/L ALT 31 (0-41) U/L Alkaline Phosphata se 121 (40-130) IU/L Total Protein 6.9 (6.6-8.7) g/dL Albumin 4.2 (3.5-5.2) g/dL Globulin 2.7 (1.3-4.6) g/dL Lipase 21 (13-60) U/L Urine Color Yellow (Yellow) Urine Appearance Clear (CLEAR) Urine pH 7 (5-7) Ur Specific Gravit y 1.010 (1.005-1.030) Urine Protein Neg (Negative) Urine Glucose (UA) Norm (Normal) Urine Ketones Negative (Negative) Urine Blood 3+ H (Negative) Urine Nitrate Negative (Negative) Urine Bilirubin Neg (Negative) Urine Urobilinogen Norm (Negative) mg/dL Ur Leukocyte Carola ase Negative (Negative) Urine RBC 40-50 H (0-2) /hpf Urine WBC 0-4 H (0-5) /hpf Ur Squamous Epith Cells 0-4 H (0-5) /hpf Amorphous Sediment Not Reportable Urine Bacteria Trace (NONE) /hpf Imaging Data ^: CT Abd/Pel: Radiologist's impression: [address] [place] [address] CT Scan Report Signed Patient: Severo Zabala Unit #: [id number] : 1960 Age/Sex: 59 / M ADM Date: 09/04/20 Loc: ER Room/Bed: Attending Dr: Ordering Provider/Ordering MD: Ghulam Cordova MD Date of Service: 09/04/20 Procedure(s): CT kidney stone 13083 Accession Number(s): [id number] Report Number: [id number] PROCEDURE INFORMATION: Exam: CT Abdomen And Pelvis Without Contrast Exam date and time: 09/04/2020 11:57 PM Age: 59 years old Clinical indication: Abdominal pain; Prior surgery; Surgery type: Hernia repair; Patient HX: Left flank pain with dysuria. ; Additional info: Abd pain L flank TECHNIQUE: Imaging protocol: Computed tomography of the abdomen and pelvis without contrast. Radiation optimization: All CT scans at this facility use at least one of these dose optimization techniques: automated exposure control; mA and/or kV adjustment per patient size (includes targeted exams where dose is matched to clinical indication); or iterative reconstruction. COMPARISON: CT kidney stone [id number] 09/21/2019 12:21 AM RADIATION DOSE METRICS: Total DLP (mGy-cm): 1978.24 FINDINGS: Liver: There is a diffuse decrease in hepatic parenchymal density, consistent with fatty infiltration. Gallbladder and bile ducts: Normal. No calcified stones. No ductal dilation. Pancreas: Normal. No ductal dilation. Spleen: Normal. No splenomegaly. Adrenal glands: The adrenal glands are normal. Kidneys and ureters: There is moderate left hydronephrosis with a 5 mm calculus distal left ureter image 149 which is just superior to the level of the left hip joint. The left kidney is enlarged in there is left perinephric fat stranding. There are multiple bilateral renal collecting system calcifications. There is no evidence of right hydronephrosis. There are bilateral renal cortical hypodensities measuring over 1 cm in size which have fluid density Hounsfield unit measurements compatible with simple cysts. Stomach and bowel: Moderate diverticulosis is present in the distal colon. There is no evidence of colitis/diverticulitis. There is mildly excessive colonic stool content. Appendix: A normal appendix is identified. Intraperitoneal space: Unremarkable. No free air. No significant fluid collection. Vasculature: The aorta demonstrates mild atherosclerotic calcification. Lymph nodes: Unremarkable.No enlarged lymph nodes. Urinary bladder: There is nonspecific bladder wall thickening. This may be related to incomplete distention. Reproductive: Unremarkable as visualized. Bones/joints: Unremarkable. No acute fracture. Soft tissues: Unremarkable. CT/CT kidney stone [id number] IMPRESSION: There is moderate left hydronephrosis with a 5 mm calculus distal left ureter image 149 which is just superior to the level of the left hip joint. Discharge Plan Discharge Patient Disposition: Home Clinical Impression: Kidney stone Condition: Stable Prescriptions: No Action amlodipine 10 mg Tablet 10 mg PO DAILY RF: 0 losartan 100 mg Tablet 100 mg PO DAILY RF: 0 ondansetron HCl [Zofran] 4 mg tablet 4 mg PO Q6H PRN (Reason: nausea and vomiting) Qty: 20 RF: 0 B Complex Stress Tab 1 tab PO PRN RF: 0 rabeprazole 20 mg tablet,delayed release (DR/EC) 20 mg PO DAILY RF: 0 naproxen 375 mg Tablet 375 - 750 mg PO PRN RF: 0 aspirin 325 mg Tablet 975 mg PO TID RF: 0 allopurinol 100 mg tablet 100 mg PO DAILY RF: 0 Tylenol Extra Strength 500 mg Tablet 1,000 mg PO PRN RF: 0 ProAir HFA 90 mcg/actuation Hfa Aerosol Inhaler 2 puff INHALATION Q4H PRN (Reason: Shortness Of Breath) RF: 0 Excedrin Migraine 250-250-65 mg Tablet 3 tab PO PRN RF: 0 Tricor 48 mg tablet 48 mg PO DAILY RF: 0 meclizine 25 mg tablet 25 mg PO TID PRN (Reason: dizziness) Qty: 30 RF: 0 Discharge Orders: Discharge ED (Routine); Ordered 09/05/20 Ordered By: Ghulam Cordova Referrals: Sam Zavala MD [Primary Care Provider] - Altaf Trivedi MD [Physician] - 1-3 days Discharge Diet: Advance as tolerated Discharge Activity: Resume usual activity Patient Instructions: Kidney Stones (ED) Coding Level of Care Code ED Nitriles Lab Technician for Chg Fwd Exam Comprehensive
[2020-09-05 00:07] VITALS: RESP 20
[2020-09-05] MEDS: HYDROmorphone 1 mg/mL INJ 1 mL IVP (00:07)
[2020-09-05 00:19] LABS: Basophils % 0.2 %; Eosinophils % 0.3 %; Hematocrit 40.8 % (42.0-52.0); Hemoglobin 13.4 g/dL (11.7-16.6); Lymphocytes # 3.2 10^3/uL (0.8-4.8); Lymphocytes % 29.5 %; Mean Corpuscular HGB Conc 32.8 g/dL (30.0-36.0); Mean Corpuscular Hemoglobin 28.3 pg (28.0-34.0); Mean Corpuscular Volume 86.3 fL (80-94); Mean Platelet Volume 9.3 fL (7.4-10.4); Monocytes # 0.9 10^3/uL (0.2-0.9); Monocytes % 7.8 %; Nucleated Red Blood Cells % 0 %; Platelet Count 290 10^3/cmm (130-400); Red Blood Count 4.73 10^6/uL (4.1-5.3); Red Cell Distribution Width 13.7 % (12.1-15.1)
[2020-09-05] MEDS: sodium chloride 0.9% 1,000 ML 999 ML IV (00:31)
[2020-09-05 00:39] LABS: Alanine Aminotransferase 31 U/L (0-41); Albumin Level 4.2 g/dL (3.5-5.2); Alkaline Phosphatase 121 IU/L (40-130); Anion Gap 14.7 (5-19); Aspartate Amino Transferase 13 U/L (0-40); Blood Urea Nitrogen 17 mg/dL (8-23); Carbon Dioxide 24 mmol/L (22-29); Chloride 99 mmol/L (98-107); Globulin 2.7 g/dL (1.3-4.6); Glomerular Filtration Rate 98.6 mL/min (90-130); Glucose 154 mg/dL (65-115); Lipase 21 U/L (13-60); Osmolality Calculated 283 mOsm/kg (285-295); Potassium 3.7 mmol/L (3.5-5.1); Sodium 134 mmol/L (136-145); Total Bilirubin 0.3 mg/dL (0.15-1.2); Total Protein 6.9 g/dL (6.6-8.7)
[2020-09-05] MEDS: ketorolac 30 mg/mL INJ 15 MG IVP (00:45)
[2020-09-05 02:06] LABS: Urine Appearance Clear (CLEAR); Urine Color Yellow (Yellow); pH Urine 7 (5-7)
[2020-09-05 02:07] LABS: Add Urine Culture? Yes; Add Urine Microscopic? YES; Bacteria Urine TRACE /hpf; Bilirubin Urine Neg (Negative); Blood Urine 3+ (Negative); Glucose Urine UA Norm (Normal); Ketones Urine Negative (Negative); Leukocyte Esterase Urine Negative (Negative); Nitrate Urine Negative (Negative); Protein Urine Neg (Negative); RBC Urine 40-50 /hpf (0-2); Squamous Epithelial Cell Urine 0-4 /hpf (0-5); Urobilinogen Urine Norm (Negative); WBC Urine 0-4 /hpf (0-5)
[2020-09-05 02:43] VITALS: BP 142/90; PULSE 80; RESP 20; O2SAT 98
--- NOTE | 2020-09-05 08:51 | DCPLANNER ---
Addendum entered by Emmy Stephens 09/05/20 15:39: Katherine from Dr. Black office called [employer] stating that Dr. Black office does not accept patients insurance. Patient is aware and will follow up with his primary care. Original Note: assistant department manager had message to schedule a follow up appointment for patient with Dr. Trivedi. assistant department manager called the office of Dr. Trivedi, spoke with Katherine, gave clinic patients information. assistant department manager was told that patients information would be printed and reviewed. Clinic will call patient with appointment information.
== END 2020-09-05 02:46 | disposition home or self-care (01) ==
PROVIDERS: Emergency Provider Emergency Medicine; PCP Family Medicine
DX: N20.0 Calculus of kidney (principal); Z79.82 Long term (current) use of aspirin
CPT/HCPCS: 74176; 80053; 81001; 83690; 85025; 87086; 96361; 96374; 96375; 99283; J1170; J1885; J7030

== ENCOUNTER 2021-07-15 14:42 | Outpatient (CLI) | payer OTHER, SELFPAY ==
--- NOTE | 2021-07-15 14:49 | USCV_ITS ---
Severo Zabala Age: 60 Gender: M : 1960 Exam Date: 07/15/2021 14:55 Ordering Phys: Ajit Mariee Technologist: Duane Sands Exam Location: [facility] [place] Indication: BP: 155 / 90 HR: 68 Rhythm: Sinus Technical Quality: Adequate MEASUREMENTS (Male / Female) Normal Values 2D ECHO LV Diastolic Diameter PLAX 5.5 cm 4.2 - 5.9 / 3.9 - 5.3 cm LV Systolic Diameter PLAX 2.5 cm IVS Diastolic Thickness 1.3 cm 0.6 - 1.0 / 0.6 - 0.9 cm IVS Systolic Thickness 1.2 cm LVPW Diastolic Thickness 1.3 cm 0.6 - 1.0 / 0.6 - 0.9 cm LVPW Systolic Thickness 2.1 cm LVOT Diameter 1.4 cm LV Ejection Fraction 2D Teich 78.0 % LV Ejection Fraction MOD 2C 71.8 % LV Ejection Fraction 2C AL 73.2 % LA Diameter 3.8 cm Aorta at Sinotubular Diameter 2.6 cm M-MODE Aortic Annulus Diameter 3.8 cm LA Ao Ratio MM 1.1 MV E Point Septal Separation 1.7 cm DOPPLER AV Peak Velocity 134.0 cm/s LVOT Peak Velocity 91.0 cm/s AV Area Cont Eq vti 1.2 cm squared AV Area Cont Eq pk 1.0 cm squared MV Area PHT 5.0 cm squared Mitral E to A Ratio 1.0 MV E' Velocity 54.8 cm/s Mitral E to MV E' Ratio 9.0 Mitral E to LV E' Lateral Ratio 9.9 Mitral E to LV E' Septal Ratio 8.2 TR Peak Velocity 173.0 cm/s TR Peak Gradient 12.0 mmHg TV Peak E Velocity 99.0 cm/s Right Atrial Pressure 3.0 mmHg Pulmonary Artery Systolic Pressu 15.0 mmHg PV Peak Velocity 99.0 cm/s FINDINGS Left Ventricle Normal left ventricular size, systolic function and wall thickness, with no regional wall motion abnormalities. Left ventricular ejection fraction is estimated at 70 %. Normal diastolic function. Right Ventricle Normal right ventricular size and systolic function. Right ventricular systolic pressure 15 mmHg. Right Atrium Normal right atrial size. Left Atrium Normal left atrial size. Mitral Valve Structurally normal mitral valve. No mitral valve stenosis. No mitral valve regurgitation. Aortic Valve Structurally normal trileaflet aortic valve. No aortic valve stenosis. No aortic valve regurgitation. Tricuspid Valve Structurally normal tricuspid valve. Trace tricuspid valve regurgitation. Pulmonic Valve Pulmonic valve not well visualized. No pulmonary valve stenosis. No pulmonary valve regurgitation. Pericardium No pericardial effusion. Aorta Normal size aortic root and proximal ascending aorta. CONCLUSIONS 1. Normal left ventricular size, systolic function and wall thickness, with no regional wall motion abnormalities. Left ventricular ejection fraction is estimated at 70 %. Normal diastolic function. 2. Normal right ventricular size and systolic function. 3. Normal pulmonary artery pressure. 4. No significant valvular normality. 5. No prior similar studies to compare. Esperanza Abad MD (Electronically Signed) Final Date: 17 July 2021 11:09 S
== END 2021-07-15 14:43 | disposition home or self-care (01) ==
LOC: RAD 14:46
PROVIDERS: PCP Family Medicine; Visit Provider Chiropractor
DX: I51.9 Heart disease, unspecified (principal)
CPT/HCPCS: 93306

== ENCOUNTER 2023-06-26 19:50 | Emergency (ER) | payer OTHER, SELFPAY ==
[2023-06-26 20:01] VITALS: BP 178/95; PULSE 91; RESP 18; TEMP 36.8; O2SAT 96; BMI 34.8
[2023-06-26 20:16] LABS: Glucose Point of Care 133 mg/dL (70-110)
--- NOTE | 2023-06-26 20:17 | XRR_ITS ---
PROCEDURE INFORMATION: Exam: XR Chest Exam date and time: 06/26/2023 8:28 PM Age: 62 years old Clinical indication: Shortness of breath; Additional info: Dizzy/copd/sob TECHNIQUE: Imaging protocol: Radiologic exam of the chest. Views: 1 view. COMPARISON: CR XR chest 1V portable [id number] 03/24/2020 12:35 PM FINDINGS: Lungs: Unremarkable. No consolidation. Pleural spaces: Unremarkable. No pleural effusion. No pneumothorax. Heart/Mediastinum: Unremarkable. No cardiomegaly. Bones/joints: Unremarkable. XR/XR chest 1V portable [id number] IMPRESSION: No acute findings.
[2023-06-26 21:12] LABS: Basophils % 0.2 %; Eosinophils % 0.4 %; Hematocrit 46.2 % (37-53); Lymphocytes # 3.4 10^3/uL (0.8-4.8); Lymphocytes % 32.3 %; Mean Corpuscular HGB Conc 33.8 g/dL (30-55); Mean Corpuscular Hemoglobin 29.1 pg (27-33); Mean Corpuscular Volume 86.2 fl (82-101); Mean Platelet Volume 9.2 fL (7.4-10.4); Monocytes # 0.5 10^3/uL (0.2-0.9); Monocytes % 5.1 %; Neutrophils # 6.55 10^3/uL (1.8-7.7); Neutrophils % 61.7 %; Nucleated Red Blood Cells % 0 %; Platelet Count 275 10^3/cmm (157-399); Red Blood Count 5.36 10^6/uL (3.85-5.65); Red Cell Distribution Width 14.1 % (12.1-15.1); White Blood Count 10.61 10^3/uL (3.29-11.43)
[2023-06-26 21:29] VITALS: BP 151/105; PULSE 96; RESP 18; O2SAT 96
[2023-06-26 21:31] LABS: Alanine Aminotransferase 30 U/L (0-41); Albumin Level 4.4 g/dL (3.5-5.2); Alkaline Phosphatase 117 U/L (40-130); Anion Gap 19.5 (5-19); Aspartate Amino Transferase 19 U/L (0-40); Blood Urea Nitrogen 34 mg/dL (8-23); Calcium 9.3 mg/dL (8.5-10.5); Carbon Dioxide 24 mmol/L (22-29); Chloride 97 mmol/L (98-107); Globulin 3.2 g/dL (1.3-4.6); Glomerular Filtration Rate 67.6 mL/min (90-130); Glucose 140 mg/dL (65-115); Lipase 39 U/L (13-60); Osmolality Calculated 294 mOsm/kg (285-295); Potassium 3.5 mmol/L (3.5-5.1); Sodium 137 mmol/L (136-145); Total Bilirubin 0.2 mg/dL (0.15-1.2); Total Protein 7.6 g/dL (6.6-8.7)
--- NOTE | 2023-06-26 21:32 | CTR_ITS ---
PROCEDURE INFORMATION: Exam: CT Head Without Contrast Exam date and time: 06/26/2023 9:50 PM Age: 62 years old Clinical indication: Syncope and collapse; Patient HX: Patient became dizzy then had syncopal episode. TECHNIQUE: Imaging protocol: Computed tomography of the head without contrast. Radiation optimization: All CT scans at this facility use at least one of these dose optimization techniques: automated exposure control; mA and/or kV adjustment per patient size (includes targeted exams where dose is matched to clinical indication); or iterative reconstruction. COMPARISON: CT head wo con* [id number] 03/24/2020 12:45 PM RADIATION DOSE METRICS: Total DLP (mGy-cm): 1078.03 FINDINGS: Brain: Normal. No hemorrhage. Unremarkable white matter. No mass effect. Cerebral ventricles: No ventriculomegaly. Paranasal sinuses: Visualized sinuses are unremarkable. No fluid levels. Mastoid air cells: Visualized mastoid air cells are well aerated. Bones/joints: Unremarkable. No acute fracture. Soft tissues: Unremarkable. CT/CT head wo con* [id number] IMPRESSION: No acute intracranial abnormality.
--- NOTE | 2023-06-26 21:33 | ED_ITS ---
HPI - Dizziness 2 General: Chief Complaint: Dizziness Stated Complaint: Light headed, SOB, Fall Time Seen by Provider: 06/26/23 21:10 History of Present Illness: HPI Narrative: 62-year-old male presents emergency depa rtment after having an episode where he passed out. He states he was in his kitchen when he turned and felt the room start to spin at which time he passed out and hit the hardwood floor. He states at that time he felt nauseated but does not feel nauseated now. He denies chest pain or shortness of breath at present or at the time of the incident. He states that when he did wake up on the floor there was a period where he felt like he was going to have a panic attack because he was unaware what had happened. He states he does have a history of frequent PVCs and takes metoprolol and he also has a history of obstructive sleep apnea for which she wears a CPAP. Associated symptoms: Reports nausea and syncope Review of Systems 2 General: Reports: 10 or more systems reviewed and unremarkable except in HPI and below Card: Reports: syncope GI: Reports: nausea [facility] ED 2 PFSH: Social History Smoking and tobacco/nicotine status: never used tobacco/nicotine Physical Exam 2 Narrative: EXAM NARRATIVE: Constitutional: the patient appears well nourished and with normal development. Vital signs reviewed as documented. HENMT: Normocephalic, atraumatic. External ears normal appearance without drainage. Nose without drainage, normal appearance. Mucus membranes moist. Neck is supple, No jugular venous distension, trachea is midline, no appreciable carotid bruits. No lymphadenopathy. No meningeal signs. Flexion, extension and lateral rotation is without pain. Eyes: Pupils are equal, round, reactive to light and accommodation. No scleral icterus. Extra-ocular movement are intact. Thorax is symmetrical and with equal rise and fall with respirations. Resp: Lungs are clear to auscultation. No wheezes, rales, crackles or ronchi at present. Cardio: Regular rate and rhythm. Positive S1, S2. No appreciable murmurs, rubs or gallops. GI: Abdominal exam reveals normal bowel sounds to all quadrants. No organomegaly. No obvious palpable masses noted. No hepatomegally appreciated. Soft, non-tender to palpation. Extremity: Extremities are non-edematous and both femoral and pedal pulses are 2+ and equal bilaterally. Moves all extremities well, sensation in all extremities. Neuro: Alert and oriented x4, person, place, time and situation. Cranial nerves II through XII are grossly intact, there is no focal neurological deficits that I can appreciate at present. Motor strength in the upper and lower extremities are equal and bilateral 5/5. Psych: Cooperative, calm, normal thought process, appropriate judgment. Skin: No lesions, rashes. No gross abnormalities noted. Back: Symmetrical, no obvious deformity, No CVA tenderness Course 2 Vital Signs: Vital signs: Vital Signs Temperature 98.2 F 06/26/23 20:01 Pulse Rate 96 06/26/23 21:29 Respiratory Rate 18 06/26/23 21:29 Blood Pressure 151/105 06/26/23 21:29 Pulse Oximetry 96 06/26/23 21:29 Oxygen Delivery Me thod Room Air 06/26/23 21:29 MDM - Dizziness Medical Decision Making Physical exam completed and documented, I will obtain a chest x-ray and a CT scan of the head without contrast to evaluate for intracranial hemorrhage I have reviewed previous and pertinent medical records for assist in obtaining benefical medical information to improved the care and treatment of the patient. Differential diagnosis includes benign positional vertigo, electrolyte abnormality, dehydration, vasovagal syncope. Medical Records I reviewed the patient's medical records. Lab Data I reviewed the patient's lab results. 06/26/23 20:49 06/26/23 20:49 Radiology Impressions Chest X-Ray 06/26/23 20:17 IMPRESSION: No acute findings. Head CT 06/26/23 21:32 IMPRESSION: No acute intracranial abnormality. Laboratory Results WBC 10.61 10^3/uL (3.29-11.43) 06/26/23 20:49 RBC 5.36 10^6/uL (3.85-5.65) 06/26/23 20:49 Hgb 15.60 g/dL (11.27-16.99) 06/26/23 20:49 Hct 46.2 % (37-53) 06/26/23 20:49 MCV 86.2 fl (82-101) 06/26/23 20:49 MCH 29.1 pg (27-33) 06/26/23 20:49 MCHC 33.8 g/dL (30-55) 06/26/23 20:49 RDW 14.1 % (12.1-15.1) 06/26/23 20:49 Plt Count 275 10^3/cmm (157-399) 06/26/23 20:49 MPV 9.2 fL (7.4-10.4) 06/26/23 20:49 Neut % (Auto) 61.7 % 06/26/23 20:49 Lymph % (Auto) 32.3 % 06/26/23 20:49 [place] % (Auto) 5.1 % 06/26/23 20:49 Eos % (Auto) 0.4 % 06/26/23 20:49 Baso % (Auto) 0.2 % 06/26/23 20:49 Neut # (Auto) 6.55 10^3/uL (1.8-7.7) 06/26/23 20:49 Lymph # (Auto) 3.4 10^3/uL (0.8-4.8) 06/26/23 20:49 [place] # (Auto) 0.5 10^3/uL (0.2-0.9) 06/26/23 20:49 Eos # (Auto) 0.0 10^3/uL (0.0-0.8) 06/26/23 20:49 Baso # (Auto) 0.0 10^3/uL (0.0-0.1) 06/26/23 20:49 Nucleated RBC % (auto) 0 % 06/26/23 20:49 Nucleated RBCs # 0.0 /100WBC 06/26/23 20:49 Sodium 137 mmol/L (136-145) 06/26/23 20:49 Potassium 3.5 mmol/L (3.5-5.1) 06/26/23 20:49 Chloride 97 mmol/L (98-107) L 06/26/23 20:49 Carbon Dioxide 24 mmol/L (22-29) 06/26/23 20:49 Anion Gap 19.5 (5-19) H 06/26/23 20:49 BUN 34 mg/dL (8-23) H 06/26/23 20:49 Creatinine 1.1 mg/dL (0.7-1.2) 06/26/23 20:49 GFR Calculation 67.6 mL/min (90-130) L 06/26/23 20:49 Glucose 140 mg/dL (65-115) H 06/26/23 20:49 POC Glucose 133 mg/dL (70-110) H 06/26/23 20:11 Calculated Osmolality 294 mOsm/kg (285-295) 06/26/23 20:49 Calcium 9.3 mg/dL (8.5-10.5) 06/26/23 20:49 Total Bilirubin 0.2 mg/dL (0.15-1.2) 06/26/23 20:49 AST 19 U/L (0-40) 06/26/23 20:49 ALT 30 U/L (0-41) 06/26/23 20:49 Alkaline Phosphatase 117 U/L (40-130) 06/26/23 20:49 Total Protein 7.6 g/dL (6.6-8.7) 06/26/23 20:49 Albumin 4.4 g/dL (3.5-5.2) 06/26/23 20:49 Globulin 3.2 g/dL (1.3-4.6) 06/26/23 20:49 Lipase 39 U/L (13-60) 06/26/23 20:49 All radiology interpretation(s) finalized by discharge EKG Data EKG 1: Interpretation: Twelve-lead EKG obtained at 2008 and reviewed at 2011 demonstrates sinus rhythm with a ventricular rate of 92 bpm, TN interval 138, QRS duration 96, QT 354, QTc [address] elevation or depression to demonstrate acute ischemia or infarction at present. Discharge Plan Discharge Patient Disposition: Home Clinical Impression: Syncope and collapse, Benign paroxysmal positional vertigo Condition: Stable Prescriptions: New meclizine 25 mg tablet 25 mg PO TID PRN (Reason: dizziness or vertigo) Qty: 30 0RF No Action olopatadine 0.1 % drops 1 drp ophthalmic (eye) BID 7 Days Qty: 5 0RF Rx Instructions: separate doses by at least 6-8 hours cetirizine [Zyrtec] 10 mg tablet 10 mg PO DAILY PRN (Reason: allergy symptoms) Qty: 20 0RF amlodipine 10 mg Tablet 10 mg PO DAILY losartan 100 mg Tablet 100 mg PO DAILY ondansetron HCl [Zofran] 4 mg tablet 4 mg PO Q6H PRN (Reason: nausea and vomiting) Qty: 20 0RF B Complex Stress Tab 1 tab PO PRN rabeprazole 20 mg tablet,delayed release (DR/EC) 20 mg PO DAILY naproxen 375 mg Tablet 375 - 750 mg PO PRN aspirin 325 mg Tablet 975 mg PO TID Rx Instructions: pt states he takes with tylenol allopurinol 100 mg tablet 100 mg PO DAILY Tylenol Extra Strength 500 mg Tablet 1,000 mg PO PRN Rx Instructions: pt states he takes with aspirin ProAir HFA 90 mcg/actuation Hfa Aerosol Inhaler 2 puff INHALATION Q4H PRN (Reason: Shortness Of Breath) Excedrin Migraine 250-250-65 mg Tablet 3 tab PO PRN Tricor 48 mg tablet 48 mg PO DAILY meclizine 25 mg tablet 25 mg PO TID PRN (Reason: dizziness) Qty: 30 0RF Discharge Orders: Discharge ED (Routine); Ordered 06/26/23 Ordered By: Jack Simpson Referrals: Sam Zavala MD [Primary Care Provider] - Discharge Diet: Advance as tolerated Discharge Activity: Resume usual activity Patient Instructions: Opioid Safety, Pain Management Activity Restrictions/Additional Instructions: Activity Restrictions/Additional Instructions: Thank you for choosing [facility] for your healthcare needs today. Please realize that you were seen in the Emergency Department and that we are providing you with an emergency medical screening exam and this may not be a complete and all inclusive of all the testing and or medical work-up that you may need to determine your ailment or severity of your illness. It is very important that you follow-up as instructed with your Primary care provider or Specialist for additional evaluation and to discuss your medical treatment plan. You may return to the Emergency Department should you have concerns or if your condition changes or worsens in any way. Coding Level of Care Code ED Solder Cream Maker for Kenneth Pennington
[2023-06-26 22:17] LABS: Add Urine Microscopic? YES; Urine Appearance Clear (CLEAR); Urine Color Yellow (Yellow); pH Urine 6 (5-7)
[2023-06-26 22:18] LABS: Bacteria Urine TRACE /hpf; Bilirubin Urine Neg (Negative); Blood Urine 2+ (Negative); Glucose Urine UA Norm (Normal); Ketones Urine Negative (Negative); Leukocyte Esterase Urine Negative (Negative); Nitrate Urine Negative (Negative); Protein Urine Neg (Negative); RBC Urine 0-4 /hpf (0-2); Squamous Epithelial Cell Urine 0-4 /hpf (0-5); Urobilinogen Urine Norm (Negative); WBC Urine 0-4 /hpf (0-5)
== END 2023-06-26 22:28 | disposition home or self-care (01) ==
PROVIDERS: Emergency Medicine; Emergency Provider Internal Medicine; PCP Family Medicine
DX: R55 Syncope and collapse (principal); H81.10 Benign paroxysmal vertigo, unspecified ear; Z79.82 Long term (current) use of aspirin
CPT/HCPCS: 36415; 36416; 70450; 71045; 80053; 81001; 82962; 83690; 85025; 99284

== ENCOUNTER → 2024-11-14 08:22 | Outpatient (BNVA) | payer MEDICARE, OTHER, SELFPAY | PROVIDERS: PCP Family Medicine; Visit Provider Nurse Practitioner Family | DX: L73.8 Other specified follicular disorders (principal); D22.5 Melanocytic nevi of trunk; L57.8 Other skin changes due to chronic exposure to nonionizing radiation; L81.4 Other melanin hyperpigmentation; X32.XXXA Exposure to sunlight, initial encounter; Z08 Encounter for follow-up examination after completed treatment for malignant neoplasm; Z85.828 Personal history of other malignant neoplasm of skin | CPT/HCPCS: 99203 ==

== ENCOUNTER → 2025-05-08 11:14 | Outpatient (BNVA) | payer MEDICARE, OTHER, SELFPAY | PROVIDERS: PCP Family Medicine; Visit Provider Nurse Practitioner Family | DX: L82.1 Other seborrheic keratosis (principal); L73.8 Other specified follicular disorders; D18.01 Hemangioma of skin and subcutaneous tissue; L57.8 Other skin changes due to chronic exposure to nonionizing radiation; L81.4 Other melanin hyperpigmentation; X32.XXXA Exposure to sunlight, initial encounter; Z08 Encounter for follow-up examination after completed treatment for malignant neoplasm; Z85.828 Personal history of other malignant neoplasm of skin | CPT/HCPCS: 99213 ==